=== PATIENT | female | born 1970 | race Hispanic/Latino ===

== ENCOUNTER 2023-01-25 07:53 | Outpatient (CLI) | payer OTHER ==
[2023-01-25 08:54] LABS: ALT (SGPT) 36 U/L (8-55); AST (SGOT) 26 U/L (5-34); Albumin 4.4 g/dL (3.5-5.0); Alkaline Phosphatase 76 U/L (40-110); Anion Gap 10 mmol/L (10-20); BUN (Urea Nitrogen) 12 mg/dL (9.8-20.1); Bilirubin, Total 0.9 mg/dL (0.2-1.2); Calc. Creatinine Clearance 0 mL/min (70-130); Calcium 9.5 mg/dL (7.8-10.44); Carbon Dioxide 26 mmol/L (22-29); Cardiac Risk 6.3 (Less than 4.5); Chloride 109 mmol/L (98-107); Cholesterol 238 mg/dl (< 200 Desired); Estimated GFR 93; Globulin 3.2 g/dL (2.4-3.5); Glucose 97 mg/dL (70-105); HDL Cholesterol 38 mg/dL (>60 Neg Risk); LDL Cholesterol, Calculated 153 mg/dL; Potassium 3.9 mmol/L (3.5-5.1); Protein, Total 7.6 g/dL (6.0-8.3); Sodium 141 mmol/L (136-145); Triglycerides 233 mg/dL (Less than 150)
[2023-01-25 09:19] LABS: Bilirubin Negative (Negative); Blood, Urine Trace (Negative); Clarity Clear (Clear); Glucose, Urine (Dipstick) Negative (Negative); Ketone, Urine Negative (Negative); Leukocyte Negative (Negative); Nitrite Negative (Negative); Protein, Urine (Dipstick) Negative (Neg-Trace); Urobilinogen 0.2 mg/dL (Less than 2); pH, Urine 5.5 (5.0-9.0)
[2023-01-25 09:31] LABS: Thyroid Stimulating Hormone 1.4623 uIU/mL (0.35-4.94)
[2023-01-25 09:56] LABS: Hemoglobin 14.1 g/dL (12.0-16.0); Mean Corpuscular HGB CONC 31.8 g/dL (32.0-36.0); Mean Corpuscular Hemoglobin 29.5 pg (27.0-31.0); Mean Corpuscular Volume 92.7 fl (78.0-98.0); Mean Platelet Volume 8.7 fL (7.4-10.4); Platelet Count 202 10x3/uL (130-400); RBC Distribution Width 12.1 % (11.5-14.5); Red Blood Cell (RBC) Count 4.77 mill/uL (4.20-5.40); White Blood Cell (WBC) Count 4.7 10x3/uL (4.8-10.8)
[2023-01-25 10:04] LABS: Eosinophils 3 % (0-10); Lymphocytes 44 % (21-51); MDiff Complete? YES; Manual Diff?? YES; Monocytes 7 % (0-10); Neutrophil 45 % (42-75)
[2023-01-25 10:16] LABS: Bacteria/HPF Rare-Few HPF (None Seen); RBC/HPF 0-3 HPF (0-3); Squamous Epithelial 0-3 HPF (0-3)
[2023-01-25 11:18] LABS: Vitamin D, 25 Hydroxy 23.1 ng/ml (> 30.0)
== END 2023-01-25 07:54 | disposition home or self-care (01) ==
LOC: BURLAB 07:53
PROVIDERS: ATTEND Naturopath
DX: Z00.00 Encounter for general adult medical examination without abnormal findings (principal); E78.5 Hyperlipidemia, unspecified; E55.9 Vitamin D deficiency, unspecified; E11.9 Type 2 diabetes mellitus without complications
CPT/HCPCS: 36415; 80050; 80061; 81001; 82306; 82670; 83036